=== PATIENT | female | born 2000 | race Caucasian/White ===

== ENCOUNTER → 2024-03-18 09:30 | Outpatient (BNVA) | payer OTHER, SELFPAY | PROVIDERS: Visit Provider Family Medicine | DX: E55.9 Vitamin D deficiency, unspecified (principal); R53.82 Chronic fatigue, unspecified; R79.89 Other specified abnormal findings of blood chemistry | CPT/HCPCS: 80053; 82306; 82607; 82728; 82746; 83540; 84439; 84443; 85025 ==